=== PATIENT | male | born 1995 | race Caucasian/White ===

== ENCOUNTER 2018-01-25 09:09 | Inpatient (IN) | payer MEDICAID ==
[~2018-01-25] VITALS: Ht 172.7 cm; Wt 76.0 kg
[~2018-01-25 09:09] MED LIST: DIPH50 PO; DIVA500T52 PO; LEVE500T53 PO; LORA2I IM; SERT50TA12 PO; TRAZ-220 PO; VALP250S23 PO; ZIPR40CA2 PO; ZIPR80CA2 PO; [UNRECOGNIZED DRUG - CODE] IM
[2018-01-25] MEDS ORDERED: LEVE500T53 PO (09:25)
[2018-01-25] MEDS ORDERED: QUET100T PO (09:25)
[2018-01-25] MEDS ORDERED: MIRT15 PO (09:25)
[2018-01-25] MEDS ORDERED: ZOLPIDEM TARTRATE 10 MG TABLET PO PRN (10:15)
[2018-01-25 10:58] LABS: ALANINE AMINOTRANSFERASE 13 U/L (12-78); ALBUMIN 3.9 g/dL (3.4-5.0); ALKALINE PHOSPHATASE 104 U/L (46-116); ANION GAP 4 mmol/L (8-16); ASPARTATE AMINOTRANSFERASE 11 U/L (15-37); BILIRUBIN,TOTAL 0.4 mg/dL (0.1-1.0); CALCIUM, TOTAL 8.8 mg/dL (8.8-10.5); CARBON DIOXIDE 33 mmol/L (22-29); CHLORIDE 106 mmol/L (98-107); CREATININE 0.61 mg/dL (0.60-1.30); GLOMERULAR FILTR. RATE CALC > 60 mL/min (>60); GLUCOSE,RANDOM 88 mg/dL (70-110); POTASSIUM 3.8 mmol/L (3.5-5.1); SODIUM SERUM 143 mmol/L (136-145); TOTAL PROTEIN, SERUM 7.5 g/dL (6.4-8.2); UREA NITROGEN, BLOOD 9 mg/dL (7-18)
[2018-01-25 11:16] LABS: AMPHET/METH SCREEN,URINE NEGATIVE (NEGATIVE); BARBITURATE SCREEN, URINE NEGATIVE (NEGATIVE); BENZODIAZEPINES SCREEN,URINE NEGATIVE (NEGATIVE); BILIRUBIN,URINE NEGATIVE (NEGATIVE); CANNABINOID SCREEN,URINE NEGATIVE (NEGATIVE); COCAINE SCREEN,URINE NEGATIVE (NEGATIVE); GLUCOSE, URINE (UA) NEGATIVE (NEGATIVE); KETONES,URINE NEGATIVE (NEGATIVE); LEUKOCYTE ESTERASE ,URINE NEGATIVE (NEGATIVE); METHADONE SCREEN, URINE NEGATIVE (NEGATIVE); NITRATE,URINE NEGATIVE (NEGATIVE); OCCULT BLOOD,URINE NEGATIVE (NEGATIVE); OPIATE SCREEN,URINE NEGATIVE (NEGATIVE); PH,URINE 5.5 (5.0-8.0); PROTEIN,URINE NEGATIVE (NEGATIVE); UROBILINOGEN,URINE 0.2 mg/dL (<=1.0)
[2018-01-25 11:18] LABS: PHENCYCLIDINE SCREEN,URINE NEGATIVE (NEGATIVE)
[2018-01-25 11:20] LABS: APPEARANCE,URINE HAZY (CLEAR)
[2018-01-25 16:13] VITALS: BP 119/77
[2018-01-25] MEDS ORDERED: CloNIDine HCL 0.1 MG TABLET PO PRN (18:15)
[2018-01-25] MEDS ORDERED: NICOTINE 14 MG/24 HOUR PATCH TD PRN (18:15)
[2018-01-25] MEDS ORDERED: ACETAMINOPHEN 325 MG TABLET PO PRN (18:15)
[2018-01-25] MEDS ORDERED: GuaiFENesin/D-METHORPHAN [SUGAR-FREE] 200-20MG/10 ML SYRUP UDCUP PO PRN (18:15)
[2018-01-25] MEDS ORDERED: ALBUTEROL SULFATE HFA 90 MCG/PUFF 8 GM INHALER IH PRN (18:15)
[2018-01-25] MEDS ORDERED: ONDANSETRON HCL 4 MG TABLET PO PRN (18:15)
[2018-01-25] MEDS ORDERED: MAGNESIUM HYDROXIDE SUSPENSION 30 ML UDCUP PO PRN (18:15)
[2018-01-25] MEDS ORDERED: DOCUSATE SODIUM 100 MG CAPSULE PO PRN (18:15)
[2018-01-25] MEDS ORDERED: PETROLATUM,WHITE 71 GM JELLY TP PRN (18:15)
[2018-01-25] MEDS ORDERED: MAG HYDROX/AL HYDROX/SIMETH ES 30 ML SUSPENSION UDCUP PO PRN (18:15)
[2018-01-25] MEDS ORDERED: LOPERAMIDE HCL 2 MG CAPSULE PO PRN (18:15)
[2018-01-25] MEDS ORDERED: IBUPROFEN 400 MG TABLET PO PRN (18:15)
[2018-01-25] MEDS ORDERED: BACITRACIN 28.4 GM OINTMENT TP PRN (19:30)
[2018-01-26] MEDS: LevETIRAcetam 500 MG TABLET PO SCH (09:47)
[2018-01-26] MEDS: LITHIUM CARBONATE 300 MG CAPSULE PO SCH (18:02)
[2018-01-27 02:21] VITALS: BP 133/77
[2018-01-27 07:58] LABS: BASOPHILS % (AUTO) 0.3 % (0.0-2.0); EOSINOPHILS % (AUTO) 1.6 % (1.0-6.0); HEMATOCRIT 45.1 % (41-53); HEMOGLOBIN 15.7 g/dL (13.5-17.5); LYMPHOCYTES # (AUTO) 1.8 K/uL (1.0-4.8); LYMPHOCYTES % (AUTO) 27.9 % (22.0-44.0); MEAN CORPUSCULAR HEMOGLOBIN 32.7 pg (26.0-34.0); MEAN CORPUSCULAR HGB CONC 34.8 G/dL (31.0-37.0); MEAN CORPUSCULAR VOLUME 94 fL (80-100); MONOCYTES # (AUTO) 0.5 K/uL (0.1-1.0); MONOCYTES % (AUTO) 7.4 % (2.0-9.0); NEUTROPHILS % (AUTO) 62.8 % (40.0-70.0); PLATELET COUNT (AUTO) 269 K/uL (150-450); RED CELL DISTRIBUTION WIDTH 12.5 % (11.5-14.5)
[2018-01-27] MEDS: LITHIUM CARBONATE 300 MG CAPSULE PO SCH ×2 (08:21→17:15)
[2018-01-27] MEDS: LevETIRAcetam 500 MG TABLET PO SCH (08:21)
[2018-01-27 08:26] LABS: CHOLESTEROL 140 mg/dL (131-200); FREE T4 (FREE THYROXINE) 1.04 ng/dL (0.76-1.46); HDL CHOLESTEROL 46 mg/dL (40-60); LDL CHOL (CALC.) 82 mg/dL (0-130); THYROID STIMULATING HORMONE 1.52 uIU/mL (0.36-3.74); TRIGLYCERIDES 62 mg/dL (15-150)
[2018-01-27 08:27] LABS: VALPROIC ACID < 3 mcg/mL (50-100)
[2018-01-27] MEDS: HALOPERIDOL 5 MG TABLET PO PRN (10:15)
[2018-01-27] MEDS: LORazepam 2 MG TABLET PO PRN (17:15)
[2018-01-28 08:08] VITALS: BP 106/74
[2018-01-28] MEDS: LevETIRAcetam 500 MG TABLET PO SCH (08:09)
[2018-01-28] MEDS: LITHIUM CARBONATE 300 MG CAPSULE PO SCH ×2 (08:10→16:07)
[2018-01-28] MEDS: LORazepam 2 MG TABLET PO PRN (08:10)
[2018-01-28] MEDS: HALOPERIDOL 5 MG TABLET PO PRN (08:10)
[2018-01-28] MEDS ORDERED: LITH300C3 PO (14:37)
[2018-01-28 16:15] VITALS: BP 132/78
== END 2018-01-28 16:25 | disposition home or self-care (01) | DRG 750 ==
LOC: EMS 09:10 → B2S 13:18 → B3A 01-27 06:59
PROVIDERS: ADMIT Psychiatry & Neurology Child & Adolescent Psychiatry; ATTEND Psychiatry & Neurology Psychiatry
DX: F25.9 Schizoaffective disorder, unspecified (principal); R45.851 Suicidal ideations; G40.909 Epilepsy, unspecified, not intractable, without status epilepticus; F10.10 Alcohol abuse, uncomplicated; F19.10 Other psychoactive substance abuse, uncomplicated; F43.10 Post-traumatic stress disorder, unspecified; F12.90 Cannabis use, unspecified, uncomplicated; F90.9 Attention-deficit hyperactivity disorder, unspecified type; F32.9 Major depressive disorder, single episode, unspecified; Z91.030 Bee allergy status; Z79.899 Other long term (current) drug therapy; Z91.5 Personal history of self-harm; Z91.018 Allergy to other foods; Z71.41 Alcohol abuse counseling and surveillance of alcoholic; Z71.51 Drug abuse counseling and surveillance of drug abuser
CPT/HCPCS: 83036; 84439; 84443

== ENCOUNTER 2019-07-17 15:54 | Inpatient (IN) | payer MEDICAID ==
[~2019-07-17] VITALS: Ht 172.7 cm; Wt 76.8 kg
[~2019-07-17 15:54] MED LIST changes: -DIPH50 PO; -DIVA500T52 PO; +LITH300C3 PO; -LORA2I IM; +MIRT-89 PO; +QUET100T PO; -SERT50TA12 PO; -TRAZ-220 PO; -VALP250S23 PO; -ZIPR40CA2 PO; -ZIPR80CA2 PO; -[UNRECOGNIZED DRUG - CODE] IM
[2019-07-17] MEDS ORDERED: DiphenhydrAMINE HCL 50 MG/ML VIAL IM ONE (16:30)
[2019-07-17] MEDS ORDERED: LORazepam 2 MG/ML VIAL IM ONE (16:30)
[2019-07-17] MEDS ORDERED: HALOPERIDOL LACTATE 5 MG/ML VIAL IM ONE (16:30)
[2019-07-17] MEDS ORDERED: HALOPERIDOL 5 MG TABLET PO PRN (20:00)
[2019-07-17] MEDS ORDERED: ZOLPIDEM TARTRATE 10 MG TABLET PO PRN (20:00)
[2019-07-17 20:49] LABS: ANION GAP 5 mmol/L (8-16); CALCIUM, TOTAL 9.4 mg/dL (8.8-10.5); CARBON DIOXIDE 29 mmol/L (22-29); CHLORIDE 103 mmol/L (98-107); GLOMERULAR FILTR. RATE CALC > 60 mL/min (>60); GLUCOSE,RANDOM 89 mg/dL (70-110); POTASSIUM 4.3 mmol/L (3.5-5.1); SODIUM SERUM 137 mmol/L (136-145); UREA NITROGEN, BLOOD 15 mg/dL (7-18)
[2019-07-17 20:59] LABS: BASOPHILS % (AUTO) 0.2 % (0.0-2.0); HEMATOCRIT 46.8 % (41-53); LYMPHOCYTES # (AUTO) 1.5 K/uL (1.0-4.8); LYMPHOCYTES % (AUTO) 15.6 % (22.0-44.0); MEAN CORPUSCULAR HEMOGLOBIN 30.8 pg (26.0-34.0); MEAN CORPUSCULAR HGB CONC 34.3 G/dL (31.0-37.0); MEAN CORPUSCULAR VOLUME 90 fL (80-100); MONOCYTES # (AUTO) 0.7 K/uL (0.1-1.0); MONOCYTES % (AUTO) 6.9 % (2.0-9.0); NEUTROPHILS # (AUTO) 7.3 K/uL (1.8-7.7); NEUTROPHILS % (AUTO) 75.3 % (40.0-70.0); PLATELET COUNT (AUTO) 283 K/uL (150-450); RED CELL DISTRIBUTION WIDTH 12.1 % (11.5-14.5)
[2019-07-17 21:33] LABS: ALANINE AMINOTRANSFERASE 39 U/L (12-78); ALBUMIN 4.3 g/dL (3.4-5.0); ALKALINE PHOSPHATASE 106 U/L (46-116); ASPARTATE AMINOTRANSFERASE 28 U/L (15-37); BILIRUBIN,TOTAL 0.7 mg/dL (0.1-1.0); TOTAL PROTEIN, SERUM 8.4 g/dL (6.4-8.2)
[2019-07-18 00:21] VITALS: BP 134/62
[2019-07-18] MEDS ORDERED: DOCUSATE SODIUM 100 MG CAPSULE PO PRN (13:30)
[2019-07-18] MEDS ORDERED: IBUPROFEN 400 MG TABLET PO PRN (13:30)
[2019-07-18] MEDS ORDERED: CloNIDine HCL 0.1 MG TABLET PO PRN (13:30)
[2019-07-18] MEDS ORDERED: MAGNESIUM HYDROXIDE SUSPENSION 30 ML UDCUP PO PRN (13:30)
[2019-07-18] MEDS ORDERED: ACETAMINOPHEN 325 MG TABLET PO PRN (13:30)
[2019-07-18] MEDS ORDERED: ONDANSETRON HCL 4 MG TABLET PO PRN (13:30)
[2019-07-18] MEDS ORDERED: ALBUTEROL SULFATE HFA 90 MCG/PUFF 8 GM INHALER IH PRN (13:30)
[2019-07-18] MEDS ORDERED: NICOTINE 14 MG/24 HOUR PATCH TD PRN (13:30)
[2019-07-18] MEDS ORDERED: PETROLATUM,WHITE 28 GM JELLY TP PRN (13:30)
[2019-07-18] MEDS ORDERED: LOPERAMIDE HCL 2 MG CAPSULE PO PRN (13:30)
[2019-07-18] MEDS ORDERED: MAG HYDROX/AL HYDROX/SIMETH ES 30 ML SUSPENSION UDCUP PO PRN (13:30)
[2019-07-18] MEDS ORDERED: GuaiFENesin/D-METHORPHAN [SUGAR-FREE] 200-20MG/10 ML SYRUP UDCUP PO PRN (13:30)
[2019-07-18 16:10] VITALS: BP 134/82
[2019-07-18] MEDS: ZIPRASIDONE HCL 20 MG CAPSULE PO SCH (16:17)
[2019-07-18] MEDS: LORazepam 2 MG TABLET PO PRN (17:17)
[2019-07-19 04:21] VITALS: BP 121/69
[2019-07-19] MEDS: ZIPRASIDONE HCL 20 MG CAPSULE PO SCH ×2 (07:01→17:22)
[2019-07-19 08:12] LABS: CHOL/HDL RATIO 4.6 (4.2-7.3)
[2019-07-19 08:49] VITALS: BP 117/65
[2019-07-19] MEDS: LevETIRAcetam 500 MG TABLET PO SCH (09:23)
[2019-07-19 16:56] VITALS: BP 122/88
[2019-07-19] MEDS: LORazepam 2 MG TABLET PO PRN (19:23)
[2019-07-20] MEDS: ZIPRASIDONE HCL 20 MG CAPSULE PO SCH ×2 (06:32→17:38)
[2019-07-20 06:40] VITALS: BP 138/77
[2019-07-20 08:29] VITALS: BP 121/82
[2019-07-20] MEDS: LevETIRAcetam 500 MG TABLET PO SCH (09:12)
[2019-07-20] MEDS: LORazepam 2 MG TABLET PO PRN (14:16)
[2019-07-20 16:12] VITALS: BP 140/89
[2019-07-21 01:11] VITALS: BP 128/82
[2019-07-21] MEDS: ZIPRASIDONE HCL 20 MG CAPSULE PO SCH (06:39)
[2019-07-21 08:05] VITALS: BP 118/67
[2019-07-21] MEDS: LevETIRAcetam 500 MG TABLET PO SCH (08:16)
[2019-07-21] MEDS ORDERED: ZIPR20CA2 PO (09:36)
== END 2019-07-21 10:34 | disposition home or self-care (01) | DRG 753 ==
LOC: EMS 15:57 → B3A 20:30 → B2S 07-20 18:50
PROVIDERS: ADMIT Psychiatry & Neurology Psychiatry; ATTEND Psychiatry & Neurology Psychiatry
DX: F31.9 Bipolar disorder, unspecified (principal); G40.909 Epilepsy, unspecified, not intractable, without status epilepticus; R45.851 Suicidal ideations; F19.10 Other psychoactive substance abuse, uncomplicated; I10 Essential (primary) hypertension; F43.10 Post-traumatic stress disorder, unspecified; F90.9 Attention-deficit hyperactivity disorder, unspecified type; G47.00 Insomnia, unspecified; Z91.14 Patient's other noncompliance with medication regimen; Z59.0 Homelessness; Z91.5 Personal history of self-harm; Z79.899 Other long term (current) drug therapy; Z88.8 Allergy status to other drugs, medicaments and biological substances
CPT/HCPCS: 99291; G0480; J1200; J1630; J2060